=== PATIENT | male | born 1985 | race Caucasian/White ===

== ENCOUNTER 2020-07-02 18:10 | Inpatient (IN) ==
[2020-07-02] MEDS ORDERED: ONDANSETRON 4 MG/2 ML VIAL ONE (18:34)
[2020-07-02] MEDS ORDERED: PANTOPRAZOLE 40 MG VIAL IV STA (18:38)
[2020-07-02] MEDS ORDERED: SODIUM CHLORIDE 0.9% 1,000 ML IV STA (18:38)
[2020-07-02] MEDS ORDERED: ONDANSETRON 4 MG/2 ML VIAL IV STA (18:38)
[2020-07-02] MEDS ORDERED: DIPHENOXYLATE/ATROPINE 2.5-0.025 MG TABLET PO STA (18:50)
[2020-07-02] MEDS ORDERED: LORazepam 2 MG/1 ML VIAL IV STA (18:51)
[2020-07-02 18:56] LABS: Basophils # 0.1 10*3/uL (0.0-0.2); Basophils % 0.4 % (0.0-0.8); Eosinophils # 0.1 10*3/uL (0.0-0.87); Eosinophils % 0.4 % (0.00-10.9); Hematocrit 45.8 VOL% (42.0-52.0); Hemoglobin 14.5 GM/DL (14.0-18.0); Immature Granulocytes Absolute 0.16 #; Lymphocytes # 1.2 10*3/uL (1.4-4.0); Lymphocytes % 7.3 % (21.2-54.2); Mean Corpuscular HGB Conc 31.7 GM/DL (32-36); Mean Corpuscular Volume 98.1 FL (87-102); Mean Platelet Volume 9.9 FL (9.6-12.0); Neutrophils % 81.9 % (38.7-73.9); Platelet Count 356 T/CUMM (130-400); Red Blood Count 4.67 MC/CUMM (3.8-5.5); Red Cell Distribution Width 15.8 % (9.3-17.3); White Blood Count 16.2 T/CUMM (4-12)
[2020-07-02 19:13] LABS: Alanine Aminotransferase 143 U/L (16-61); Albumin 3.9 G/DL (3.4-5.0); Alkaline Phosphatase 143 U/L (45-117); Amylase 55 U/L (25-115); Aspartate Amino Transferase 117 U/L (0-37); Blood Urea Nitrogen 21 MG/DL (7-18); Calcium 9.7 MG/DL (8.5-10.1); Carbon Dioxide 15 MMOL/L (21-32); Estimated Glom Filtration Rate 35 ML/MIN; Glucose 153 MG/DL (74-106); Osmolality,Calculated 273.2 MOS/KG (273-304); Potassium 5.2 MMOL/L (3.5-5.1); Sodium 134 MMOL/L (136-145); Troponin I < 0.015 NG/ML (0.00-0.045)
[2020-07-02] MEDS ORDERED: THIAMINE INJ 100 MG, FOLIC ACID INJ 1 MG, MULTIVITAMIN INJ 10 ML in SODIUM CHLORIDE 0.9... IV ONE (20:26)
[2020-07-02] MEDS ORDERED: DEXTROSE 50% 25 GM/50 ML VIAL IV PRN (20:30)
[2020-07-02] MEDS ORDERED: GLUCAGON 1 MG VIAL IM PRN (20:30)
[2020-07-02] MEDS ORDERED: ONDANSETRON 4 MG/2 ML VIAL IV PRN (20:50)
[2020-07-02] MEDS ORDERED: NICOTINE 21 MG/24 HR PATCH TRANSDERM PRN (20:50)
[2020-07-02] MEDS ORDERED: ALUMINUM/MAGNES/SIMETH MAX STR 30 ML UDCUP PO PRN (20:50)
[2020-07-02] MEDS ORDERED: hydrALAZINE 20 MG/1 ML VIAL IV PRN (20:50)
[2020-07-02] MEDS ORDERED: PROMETHAZINE 25 MG/1 ML VIAL IM PRN (20:50)
[2020-07-02] MEDS: LORazepam 2 MG/1 ML VIAL IV PRN (23:53)
[2020-07-03] MEDS ORDERED: DIPHENOXYLATE/ATROPINE 2.5-0.025 MG TABLET PO PRN (00:58)
[2020-07-03] MEDS ORDERED: ACETAMINOPHEN 325 MG TABLET PO PRN (02:48)
[2020-07-03] MEDS: LORazepam 2 MG/1 ML VIAL IV PRN ×5 (03:28→23:20)
[2020-07-03] MEDS ORDERED: SODIUM CHLORIDE 0.9% 500 ML IV ONE (04:48)
[2020-07-03 06:12] LABS: Basophils % 0.3 % (0.0-0.8); Eosinophils # 0.1 10*3/uL (0.0-0.87); Eosinophils % 0.6 % (0.00-10.9); Hematocrit 45.7 VOL% (42.0-52.0); Hemoglobin 14.4 GM/DL (14.0-18.0); Immature Granulocytes % 0.5 %; Immature Granulocytes Absolute 0.06 #; Lymphocytes # 1.3 10*3/uL (1.4-4.0); Lymphocytes % 10.5 % (21.2-54.2); Mean Corpuscular HGB Conc 31.5 GM/DL (32-36); Mean Corpuscular Volume 97.9 FL (87-102); Mean Platelet Volume 10.1 FL (9.6-12.0); Monocytes % 10.5 % (1.7-12.7); Neutrophils % 77.6 % (38.7-73.9); Platelet Count 345 T/CUMM (130-400); Red Blood Count 4.67 MC/CUMM (3.8-5.5); Red Cell Distribution Width 15.9 % (9.3-17.3)
[2020-07-03 06:37] LABS: Albumin 3.6 G/DL (3.4-5.0); Bilirubin,Total 0.6 MG/DL (0.2-1.0); Calcium 9.5 MG/DL (8.5-10.1); Osmolality,Calculated 272.1 MOS/KG (273-304); Total Protein 8.4 G/DL (6.4-8.3)
[2020-07-03] MEDS: MULTIVITAMIN (CENTRUM) TABLET PO SCH (09:25)
[2020-07-03] MEDS: FOLIC ACID 1 MG TABLET PO SCH (09:25)
[2020-07-03] MEDS: SODIUM CHLORIDE 0.9% 1,000 ML IV SCH ×2 (10:34→22:01)
[2020-07-03] MEDS ORDERED: BUPRENORPHINE SL TAB 2 MG TABLET SL SCH (13:00)
[2020-07-03] MEDS: PREGABALIN 75 MG CAPSULE PO SCH ×2 (13:56→22:03)
[2020-07-03] MEDS: HALOPERIDOL 5 MG TABLET PO SCH ×2 (13:56→22:02)
[2020-07-03] MEDS: levETIRAcetam 500 MG TABLET PO SCH ×2 (13:56→22:02)
[2020-07-03 14:49] LABS: Hepatitis B Core IgM Quant 0.16 Index; Hepatitis B Surface Ag Quant 0.26 Index; Hepatitis B Surface Ag Result Non-Reactive (NonReactive); Hepatitis C Virus Ab Result Non-Reactive (NonReactive)
[2020-07-03] MEDS: BUPRENORPHINE SL TAB 2 MG TABLET SL SCH ×2 (15:24→22:15)
[2020-07-03 15:33] LABS: Bilirubin,Urine Negative (Negative); Blood, Urine Negative (Negative); Glucose,Urine (UA) Negative (Negative); Hyaline Casts,Urine 3 /LPF (0-3); Ketones,Urine Negative (Negative); Mucus,Urine Occasional /LPF (Occasional); Nitrite,Urine Negative (Negative); Protein,Urine Negative; RBC,Urine 3 /HPF (0-4); Urine Appearance CLEAR (Clear); Urine Color Yellow (Yellow); Urine Specific Gravity 1.006 (1.001-1.035); Urine Urobilinogen < 2.0 EU/DL (0.2-1.0); WBC,Urine 2 /HPF (0-6)
[2020-07-03] MEDS: DIPHENOXYLATE/ATROPINE 2.5-0.025 MG TABLET PO PRN (16:28)
[2020-07-03 18:23] LABS: Barbiturates Screen,Urine Negative (Negative); Benzodiazepines Screen,Urine Positive (Negative); Cannabinoid Screen,Urine Negative (Negative); Opiate Screen,Urine Negative (Negative); Phencyclidine Screen,Urine Negative (Negative)
[2020-07-03] MEDS: VENLAFAXINE XR 75 MG CAPSULE PO SCH (22:02)
[2020-07-03] MEDS: diphenhydrAMINE CAP 25 MG CAPSULE PO PRN (22:15)
[2020-07-04] MEDS: LORazepam 2 MG/1 ML VIAL IV PRN ×5 (03:04→21:38)
[2020-07-04 05:36] LABS: Basophils # 0.1 10*3/uL (0.0-0.2); Basophils % 0.5 % (0.0-0.8); Eosinophils # 0.2 10*3/uL (0.0-0.87); Eosinophils % 1.6 % (0.00-10.9); Hematocrit 39.6 VOL% (42.0-52.0); Hemoglobin 12.7 GM/DL (14.0-18.0); Immature Granulocytes % 0.5 %; Immature Granulocytes Absolute 0.06 #; Lymphocytes # 2.2 10*3/uL (1.4-4.0); Lymphocytes % 16.2 % (21.2-54.2); Mean Corpuscular HGB Conc 32.1 GM/DL (32-36); Mean Corpuscular Volume 96.4 FL (87-102); Mean Platelet Volume 9.2 FL (9.6-12.0); Monocytes % 14.1 % (1.7-12.7); Neutrophils % 67.1 % (38.7-73.9); Platelet Count 256 T/CUMM (130-400); Red Blood Count 4.11 MC/CUMM (3.8-5.5); Red Cell Distribution Width 15.8 % (9.3-17.3); White Blood Count 13.3 T/CUMM (4-12)
[2020-07-04 05:55] LABS: Albumin 3.1 G/DL (3.4-5.0); Bilirubin,Total 1.4 MG/DL (0.2-1.0); Osmolality,Calculated 274.7 MOS/KG (273-304); Total Protein 7.2 G/DL (6.4-8.3)
[2020-07-04] MEDS: BUPRENORPHINE SL TAB 2 MG TABLET SL SCH ×3 (05:55→21:40)
[2020-07-04] MEDS: SODIUM CHLORIDE 0.9% 1,000 ML IV SCH ×2 (07:16→21:35)
[2020-07-04] MEDS: MULTIVITAMIN (CENTRUM) TABLET PO SCH (09:36)
[2020-07-04] MEDS: levETIRAcetam 500 MG TABLET PO SCH ×2 (09:36→21:43)
[2020-07-04] MEDS: PREGABALIN 75 MG CAPSULE PO SCH ×3 (09:36→21:39)
[2020-07-04] MEDS: METOPROLOL SUCCINATE XL 25 MG TABLET PO SCH (09:36)
[2020-07-04] MEDS: FOLIC ACID 1 MG TABLET PO SCH (09:36)
[2020-07-04] MEDS: HALOPERIDOL 5 MG TABLET PO SCH ×2 (09:37→21:39)
[2020-07-04] MEDS: VENLAFAXINE XR 75 MG CAPSULE PO SCH ×2 (09:37→21:39)
[2020-07-04] MEDS: DIPHENOXYLATE/ATROPINE 2.5-0.025 MG TABLET PO PRN (13:54)
[2020-07-04] MEDS: diphenhydrAMINE CAP 25 MG CAPSULE PO PRN (21:39)
[2020-07-05] MEDS: LORazepam 2 MG/1 ML VIAL IV PRN ×3 (00:32→09:49)
[2020-07-05] MEDS: BUPRENORPHINE SL TAB 2 MG TABLET SL SCH (05:40)
[2020-07-05 06:16] LABS: Basophils # 0.1 10*3/uL (0.0-0.2); Basophils % 0.4 % (0.0-0.8); Eosinophils # 0.2 10*3/uL (0.0-0.87); Eosinophils % 1.5 % (0.00-10.9); Hematocrit 36.6 VOL% (42.0-52.0); Hemoglobin 11.8 GM/DL (14.0-18.0); Immature Granulocytes % 0.3 %; Immature Granulocytes Absolute 0.04 #; Lymphocytes # 2.2 10*3/uL (1.4-4.0); Lymphocytes % 17.9 % (21.2-54.2); Mean Corpuscular HGB Conc 32.2 GM/DL (32-36); Mean Corpuscular Volume 94.8 FL (87-102); Mean Platelet Volume 10.2 FL (9.6-12.0); Monocytes % 13.6 % (1.7-12.7); Neutrophils % 66.3 % (38.7-73.9); Platelet Count 248 T/CUMM (130-400); Red Blood Count 3.86 MC/CUMM (3.8-5.5); White Blood Count 12.3 T/CUMM (4-12)
[2020-07-05 07:12] LABS: Calcium 9.4 MG/DL (8.5-10.1); Osmolality,Calculated 268.1 MOS/KG (273-304); Potassium 3.5 MMOL/L (3.5-5.1)
[2020-07-05] MEDS: MULTIVITAMIN (CENTRUM) TABLET PO SCH (09:48)
[2020-07-05] MEDS: FOLIC ACID 1 MG TABLET PO SCH (09:48)
[2020-07-05] MEDS: PREGABALIN 75 MG CAPSULE PO SCH (09:48)
[2020-07-05] MEDS: VENLAFAXINE XR 75 MG CAPSULE PO SCH (09:48)
[2020-07-05] MEDS: METOPROLOL SUCCINATE XL 25 MG TABLET PO SCH (09:48)
[2020-07-05] MEDS: levETIRAcetam 500 MG TABLET PO SCH (09:48)
[2020-07-05] MEDS: HALOPERIDOL 5 MG TABLET PO SCH (10:04)
[2020-07-05] MEDS: DIPHENOXYLATE/ATROPINE 2.5-0.025 MG TABLET PO PRN (10:04)
[2020-07-05 11:06] VITALS: BP 131/80
== END 2020-07-05 13:22 | disposition left against medical advice (07) | DRG 894 ==
LOC: N.EDINP 18:10 → N.ED 18:10 → N.3E 21:17
PROVIDERS: ADMIT Internal Medicine; ATTEND Internal Medicine